=== PATIENT | female | born 1985 | race Caucasian/White ===

== ENCOUNTER 2018-12-21 12:15 | Inpatient (IN) | payer MEDICAID ==
[2018-12-21 13:03] LABS: ADD MAN DIFF? NO
[2018-12-21 13:08] LABS: WHITE BLOOD COUNT 9.2 10^3/ul (4.8-10.8)
[2018-12-21 13:08] LABS: BASOPHILS % 0.2 % (0.0-2.0); EOSINOPHILS # 0.1 10^3/ul (0.0-0.5); EOSINOPHILS % 0.7 % (0.0-7.0); HEMATOCRIT 33.7 % (37.0-47.0); LYMPHOCYTES # 1.6 10^3/ul (0.8-2.9); LYMPHOCYTES % 17.3 % (15.0-51.0); MEAN CORPUSCULAR HEMOGLOBIN 28.6 pg (29.0-33.0); MEAN CORPUSCULAR HGB CONC 32.6 g/dl (32.0-37.0); MEAN CORPUSCULAR VOLUME 87.5 fl (82.0-101.0); MEAN PLATELET VOLUME 10.5 fl (7.4-10.4); MONOCYTE # 0.9 10^3/ul (0.3-0.9); MONOCYTES % 10.1 % (0.0-11.0); NEUTROPHIL # 6.5 10^3/ul (1.6-7.5); NEUTROPHILS % 70.6 % (39.0-77.0); PLATELET COUNT 250 10^3/UL (140-415); RED BLOOD COUNT 3.85 10^6/ul (4.20-5.40); RED CELL DISTRIBUTION WIDTH 13.2 % (11.5-14.5)
[2018-12-21 13:16] LABS: ADD UMIC YES; UR ASCORBIC ACID 20 mg/dL (NEGATIVE); UR BILIRUBIN (Dip) NEGATIVE (NEGATIVE); UR BLOOD (Dip) NEGATIVE (NEGATIVE); UR CLARITY CLOUDY (CLEAR); UR COLOR YELLOW (YELLOW); UR GLUCOSE (Dip) NEGATIVE (NEGATIVE); UR KETONES (Dip) TRACE mg/dL (NEGATIVE); UR LEUKOCYTE ESTERASE (Dip) 3+ Leu/ul (NEGATIVE); UR NITRITE (Dip) NEGATIVE (NEGATIVE); UR RBC 29 /HPF (0-5); UR SPECIFIC GRAVITY (Dip) 1.011 (1.003-1.030); UR SQUAMOUS EPITHELIAL CELL FEW /HPF (FEW); UR TOTAL PROTEIN (Dip) NEGATIVE (NEGATIVE); UR UROBILINOGEN (Dip) NEGATIVE (NEGATIVE); UR WBC 33 /HPF (0-5)
[2018-12-21 13:46] LABS: RUPTURE FETAL MEMBRANES NEGATIVE (NEGATIVE)
[2018-12-21] MEDS ORDERED: ACETAMINOPHEN 325 MG TAB PO (15:30)
[2018-12-21] MEDS ORDERED: ONDANSETRON 4 MG INJ IV (15:30)
[2018-12-21] MEDS ORDERED: MAGNESIUM SULFATE 4 GM/100 ML 100 ML (15:35)
[2018-12-21] MEDS: LACTATED RINGER'S 1,000 ML IV ×2 (16:12→23:24)
[2018-12-21] MEDS: MAGNESIUM SULFATE 4 GM/100 ML 100 ML IV (16:35)
[2018-12-21] MEDS: MAGNESIUM SULFATE 20 GM/500 ML 500 ML IV (17:12)
[2018-12-21] MEDS: BETAMET NA PHOS/AC(6 MG/ML) 2 ML INJ SYG IM (18:14)
[2018-12-21 18:38] LABS: ADD MAN DIFF? NO
[2018-12-21 18:42] LABS: BASOPHILS % 0.2 % (0.0-2.0); EOSINOPHILS # 0.1 10^3/ul (0.0-0.5); EOSINOPHILS % 0.5 % (0.0-7.0); HEMATOCRIT 34.8 % (37.0-47.0); HEMOGLOBIN 11.2 g/dl (12.0-16.0); LYMPHOCYTES # 1.7 10^3/ul (0.8-2.9); LYMPHOCYTES % 16.7 % (15.0-51.0); MEAN CORPUSCULAR HEMOGLOBIN 28.6 pg (29.0-33.0); MEAN CORPUSCULAR HGB CONC 32.2 g/dl (32.0-37.0); MEAN CORPUSCULAR VOLUME 88.8 fl (82.0-101.0); MONOCYTE # 0.9 10^3/ul (0.3-0.9); MONOCYTES % 8.8 % (0.0-11.0); NEUTROPHIL # 7.3 10^3/ul (1.6-7.5); PLATELET COUNT 270 10^3/UL (140-415); RED BLOOD COUNT 3.92 10^6/ul (4.20-5.40); RED CELL DISTRIBUTION WIDTH 13.4 % (11.5-14.5)
[2018-12-21 19:17] LABS: HEPATITIS B SURFACE ANTIGEN NEGATIVE (NEGATIVE)
[2018-12-21 19:19] LABS: ADD UMIC YES; UR ASCORBIC ACID NEGATIVE (NEGATIVE); UR BACTERIA FEW /HPF (NONE SEEN); UR BILIRUBIN (Dip) NEGATIVE (NEGATIVE); UR BLOOD (Dip) 1+ mg/dL (NEGATIVE); UR CLARITY SLIGHTLY CLOUDY (CLEAR); UR COLOR YELLOW (YELLOW); UR GLUCOSE (Dip) NEGATIVE (NEGATIVE); UR KETONES (Dip) 1+ mg/dL (NEGATIVE); UR LEUKOCYTE ESTERASE (Dip) 3+ Leu/ul (NEGATIVE); UR NITRITE (Dip) NEGATIVE (NEGATIVE); UR RBC 6 /HPF (0-5); UR SPECIFIC GRAVITY (Dip) 1.012 (1.003-1.030); UR SQUAMOUS EPITHELIAL CELL MODERATE /HPF (FEW); UR TOTAL PROTEIN (Dip) NEGATIVE (NEGATIVE); UR UROBILINOGEN (Dip) NEGATIVE (NEGATIVE); UR WBC 14 /HPF (0-5)
[2018-12-21 20:17] LABS: HIV 1&2 ANTIBODY NEGATIVE (NEGATIVE)
[2018-12-22 01:24] LABS: MAGNESIUM 5.2 mg/dl (1.7-2.5)
[2018-12-22] MEDS: MAGNESIUM SULFATE 20 GM/500 ML 500 ML IV ×4 (01:24→23:32)
[2018-12-22] MEDS: LACTATED RINGER'S 1,000 ML IV ×3 (03:17→23:24)
[2018-12-22 07:01] LABS: MAGNESIUM 5.6 mg/dl (1.7-2.5)
[2018-12-22] MEDS: PRENATAL VITAMIN PO (11:05)
[2018-12-22 12:40] LABS: MAGNESIUM 5.9 mg/dl (1.7-2.5)
[2018-12-22 15:19] LABS: RAPID PLASMA REAGIN NONREACTIVE (NR)
[2018-12-22 18:26] LABS: MAGNESIUM 5.9 mg/dl (1.7-2.5)
[2018-12-22] MEDS: BETAMET NA PHOS/AC(6 MG/ML) 2 ML INJ SYG IM (18:48)
[2018-12-23] MEDS: LACTATED RINGER'S 1,000 ML IV (04:55)
[2018-12-23] MEDS: PRENATAL VITAMIN PO (08:39)
[2018-12-23 19:21] LABS: RUBELLA ANTIBODY - IGG 5.17 index
[2018-12-24 10:56] LABS: RUBELLA ANTIBODY - IGM <20.00 AU/mL
== END 2018-12-23 11:10 | disposition home or self-care (01) | DRG 832 ==
LOC: OBT 12:15 → PP1 12-22 05:17 → L-D 12:17 → OBT 14:58 → L-D 14:58 → PP1 20:36
DX: O47.03 False labor before 37 completed weeks of gestation, third trimester (principal); O26.873 Cervical shortening, third trimester; Z3A.35 35 weeks gestation of pregnancy
CPT/HCPCS: 76815; 76817; 76818; 81001; 82731; 83735; 84112; 85025; 86592; 86703; 86762; 86900; 86901; 87086; 87340

== ENCOUNTER 2018-12-26 13:35 | Outpatient (CLI) | payer SELFPAY, MEDICAID | END 2018-12-26 16:30 | disposition home or self-care (01) | LOC: OBT 13:35 → L-D 13:35 → OBT 16:30 | DX: O62.9 Abnormality of forces of labor, unspecified (principal); Z3A.36 36 weeks gestation of pregnancy | CPT/HCPCS: 76818 ==

== ENCOUNTER 2019-01-21 11:12 | Inpatient (IN) | payer MEDICAID ==
[2019-01-21] MEDS ORDERED: LACTATED RINGER'S 1,000 ML IV (12:00)
[2019-01-21] MEDS ORDERED: MISOPROSTOL 200 MCG TAB PR ×2 (12:00→18:00)
[2019-01-21] MEDS ORDERED: CARBOPROST 250 MCG INJ IM ×2 (12:00→18:00)
[2019-01-21] MEDS ORDERED: METHYLERGONOVINE 0.2 MG INJ IM ×2 (12:00→18:00)
[2019-01-21 12:19] LABS: ADD MAN DIFF? NO
[2019-01-21 12:22] LABS: BASOPHILS % 0.2 % (0.0-2.0); EOSINOPHILS % 0.5 % (0.0-7.0); HEMATOCRIT 36.7 % (37.0-47.0); HEMOGLOBIN 11.9 g/dl (12.0-16.0); LYMPHOCYTES # 1.7 10^3/ul (0.8-2.9); LYMPHOCYTES % 21.6 % (15.0-51.0); MEAN CORPUSCULAR HEMOGLOBIN 28.7 pg (29.0-33.0); MEAN CORPUSCULAR HGB CONC 32.4 g/dl (32.0-37.0); MEAN CORPUSCULAR VOLUME 88.4 fl (82.0-101.0); MEAN PLATELET VOLUME 10.9 fl (7.4-10.4); MONOCYTE # 0.7 10^3/ul (0.3-0.9); MONOCYTES % 8.9 % (0.0-11.0); NEUTROPHIL # 5.5 10^3/ul (1.6-7.5); NEUTROPHILS % 68.2 % (39.0-77.0); PLATELET COUNT 230 10^3/UL (140-415); RED BLOOD COUNT 4.15 10^6/ul (4.20-5.40); RED CELL DISTRIBUTION WIDTH 14.3 % (11.5-14.5)
[2019-01-21 12:22] LABS: WHITE BLOOD COUNT 8.1 10^3/ul (4.8-10.8)
[2019-01-21] MEDS: CITRIC ACID/NA CITRATE 30 ML CUP PO (12:28)
[2019-01-21] MEDS: LACTATED RINGER'S 1,000 ML IV (12:29)
[2019-01-21] MEDS: AZITHROMYCIN 500MG/NS (PMX) 250 ML IVPB (12:37)
[2019-01-21 12:48] LABS: INR 0.98; PARTIAL THROMBOPLASTIN TIME 25.8 Sec (23.0-35.0); PROTIME 13.1 Sec (11.9-14.9)
[2019-01-21] MEDS ORDERED: METOCLOPRAMIDE 10 MG INJ (12:49)
[2019-01-21] MEDS ORDERED: ONDANSETRON 4 MG INJ (12:49)
[2019-01-21] MEDS ORDERED: morphine SULFATE/PF (10 MG/10 ML) INJ (12:49)
[2019-01-21] MEDS ORDERED: KETOROLAC 30 MG INJ (12:50)
[2019-01-21] MEDS ORDERED: PHENYLephrine (100 MCG/ML) 10ML SYG (13:08)
[2019-01-21] MEDS ORDERED: FENTAnyl 50 MCG/ML VIAL (13:41)
[2019-01-21] MEDS ORDERED: OXYTOCIN 30 UNITS/LR 500 ML IV ×2 (13:43→18:00)
[2019-01-21] MEDS ORDERED: morphine 2 MG INJ IV ×3 (14:00)
[2019-01-21] MEDS ORDERED: KETOROLAC 30 MG INJ IV (14:00)
[2019-01-21] MEDS ORDERED: DIPHENHYDRAMINE 50 MG INJ IV ×2 (14:00)
[2019-01-21] MEDS ORDERED: HYDROmorphONE 1 MG/5 ML IV SYRINGE IV ×3 (14:00)
[2019-01-21] MEDS ORDERED: ONDANSETRON 4 MG INJ IV ×2 (14:00)
[2019-01-21] MEDS ORDERED: NALOXONE (0.4 MG/ML) INJ IV (14:00)
[2019-01-21] MEDS: CEFAZOLIN 2 GM/50 ML (PMX) 50 ML IVPB (14:47)
[2019-01-21] MEDS: OXYTOCIN 30 UNITS/LR 500 ML IV ×2 (14:49→18:59)
[2019-01-21] MEDS ORDERED: OXYCODONE/ACETAMINOPHEN (5/325) TAB PO (18:00)
[2019-01-21 21:34] LABS: RAPID PLASMA REAGIN NONREACTIVE (NR)
[2019-01-21] MEDS: SENNA/DOCUSATE NA (8.6MG/50MG) TAB PO (21:58)
[2019-01-21] MEDS: LANOLIN HPA 1 PKT TOP (21:58)
[2019-01-22] MEDS: LACTATED RINGER'S 1,000 ML IV (03:30)
[2019-01-22] MEDS: KETOROLAC 30 MG INJ IV ×2 (05:49→13:11)
[2019-01-22 07:17] LABS: ADD MAN DIFF? NO
[2019-01-22 07:30] LABS: WHITE BLOOD COUNT 9.7 10^3/ul (4.8-10.8)
[2019-01-22 07:30] LABS: BASOPHILS % 0.1 % (0.0-2.0); EOSINOPHILS % 0.4 % (0.0-7.0); HEMATOCRIT 29.1 % (37.0-47.0); HEMOGLOBIN 9.5 g/dl (12.0-16.0); LYMPHOCYTES # 1.4 10^3/ul (0.8-2.9); MEAN CORPUSCULAR HGB CONC 32.6 g/dl (32.0-37.0); MEAN CORPUSCULAR VOLUME 88.7 fl (82.0-101.0); MONOCYTE # 0.8 10^3/ul (0.3-0.9); MONOCYTES % 7.7 % (0.0-11.0); NEUTROPHIL # 7.5 10^3/ul (1.6-7.5); NEUTROPHILS % 77.1 % (39.0-77.0); PLATELET COUNT 193 10^3/UL (140-415); RED BLOOD COUNT 3.28 10^6/ul (4.20-5.40); RED CELL DISTRIBUTION WIDTH 14.2 % (11.5-14.5)
[2019-01-22] MEDS: SENNA/DOCUSATE NA (8.6MG/50MG) TAB PO ×2 (09:13→20:56)
[2019-01-22] MEDS: FERROUS SULFATE (EC) 325 MG TAB PO ×2 (13:11→20:56)
[2019-01-22] MEDS: IBUPROFEN 800 MG TAB PO ×2 (14:00→21:53)
[2019-01-23] MEDS: IBUPROFEN 800 MG TAB PO ×3 (06:05→22:32)
[2019-01-23] MEDS: FERROUS SULFATE (EC) 325 MG TAB PO ×3 (09:50→21:03)
[2019-01-23] MEDS: SENNA/DOCUSATE NA (8.6MG/50MG) TAB PO ×2 (09:50→21:03)
[2019-01-23] MEDS: OXYCODONE/ACETAMINOPHEN (5/325) TAB PO (12:53)
[2019-01-24] MEDS: IBUPROFEN 800 MG TAB PO ×2 (06:11→13:44)
[2019-01-24] MEDS: FERROUS SULFATE (EC) 325 MG TAB PO ×2 (08:58→13:44)
[2019-01-24] MEDS: LANOLIN HPA 1 PKT TOP (08:58)
[2019-01-24] MEDS: SENNA/DOCUSATE NA (8.6MG/50MG) TAB PO (08:58)
[2019-01-24] MEDS: DIPHTH/TET/ACEL PERTUSS (ADULT) 0.5 ML VIAL IM* (13:45)
== END 2019-01-24 17:12 | disposition home or self-care (01) | DRG 788 ==
LOC: OBT 11:12 → L-D 11:13 → OBT 12:00 → L-D 12:00 → PP1 16:55
PROVIDERS: Obstetrics & Gynecology
PROC: 10D00Z1 Extraction of Products of Conception, Low, Open Approach (ICD-10-PCS; principal; 2019-01-21 12:30)
DX: O32.1XX0 Maternal care for breech presentation, not applicable or unspecified (principal); Z3A.38 38 weeks gestation of pregnancy; Z37.0 Single live birth; Z23 Encounter for immunization
CPT/HCPCS: 76815; 85025; 85610; 85730; 86592; 86850; 86900; 86901; 90715; 99464